=== PATIENT | female | born 2000 | race Asian ===

== ENCOUNTER 2021-08-08 15:02 | Emergency (ER) | payer OTHER ==
[~2021-08-08] VITALS: Ht 165.1 cm; Wt 72.0 kg
[2021-08-08 15:12] VITALS: BP 122/67
[2021-08-08 15:14] LABS: COVID AG,FIA SOURCE NASAL SWAB
== END 2021-08-08 17:20 | disposition home or self-care (01) ==
LOC: EMS 15:04
DX: J06.9 Acute upper respiratory infection, unspecified (principal); Z20.822 Contact with and (suspected) exposure to COVID-19
CPT/HCPCS: 99283